=== PATIENT | female | born 1935 | race Caucasian/White ===

== ENCOUNTER 2022-07-14 11:09 | Emergency (ER) | payer MEDICARE, BC ==
[2022-07-14 11:56] LABS: ESTIMATED GFR 55 mL/min (>60)
[2022-07-14] MEDS ORDERED: Sodium Chloride 0.9% 1,000 ML IV ONE ×2 (12:04→14:45)
[2022-07-14] MEDS ORDERED: Piperacillin/Tazobactam 3.375 GM in Sodium Chloride 0.9% 50 ML IV SCH (12:15)
[2022-07-14] MEDS ORDERED: VANCOmycin 1 GM/200 ML 1 GM in Premix Bag 1 BAG IV SCH (12:30)
[2022-07-14] MEDS ORDERED: Acetaminophen 650 MG Supp RECTAL ONE (13:10)
[2022-07-14 14:58] LABS: CORONAVIRUS COVID-19 NAA NEGATIVE (NEGATIVE)
[2022-07-14] MEDS ORDERED: Saccharomyces Boulardii (Probiotic) 250 MG Cap PO SCH (21:00)
== END 2022-07-14 14:50 ==
LOC: FB.ED 11:09
DX: S42.343A Displaced spiral fracture of shaft of humerus, unspecified arm, initial encounter for closed fracture (principal); A41.9 Sepsis, unspecified organism; D72.825 Bandemia; J98.6 Disorders of diaphragm; X58.XXXA Exposure to other specified factors, initial encounter
CPT/HCPCS: 0241U; 36415; 71045; 80053; 81001; 83605; 83735; 85025; 86140; 87040; 87077; 96361; 96365; 96367; 99285; A9270; J2543; J3370; J7030; J3490

== ENCOUNTER 2022-12-07 17:42 | Emergency (ER) | payer MEDICARE, BC ==
[2022-12-07 18:39] LABS: APPEARANCE,URINE CLOUDY (CLEAR); BACTERIA,URINE MODERATE (NS); BILIRUBIN,URINE NEGATIVE (NEGATIVE); COLOR,URINE YELLOW (YELLOW); GLUCOSE,URINE NORMAL (NORMAL); KETONES,URINE NEGATIVE (NEGATIVE); LEUKOCYTE ESTERASE,URINE LARGE (NEGATIVE); NITRITE,URINE POSITIVE (NEGATIVE); OCCULT BLOOD,URINE MODERATE (NEGATIVE); PROTEIN,URINE 30 mg/dL (NEGATIVE); RBC,URINE >100 (0-5); RENAL EPITHELIAL CELLS,URINE RARE (NS); SQUAMOUS EPITHELIAL CELLS,UR OCCASIONAL (NS,R,O); UROBILINOGEN,URINE NORMAL (NEGATIVE); WBC,URINE >100 (0-5)
[2022-12-07] MEDS ORDERED: cefTRIAXone 1 GM Vial IM ONE (19:14)
== END 2022-12-07 19:58 | disposition home or self-care (01) ==
LOC: FB.ED 17:42
DX: N39.0 Urinary tract infection, site not specified (principal); I10 Essential (primary) hypertension; Z79.899 Other long term (current) drug therapy
CPT/HCPCS: 81001; 87086; 87088; 87186; 96372; 99283; J0696

== ENCOUNTER 2023-01-23 14:25 | Emergency (ER) | payer MEDICARE, BC ==
[2023-01-23] MEDS: Sodium Chloride 0.9% 10 ML Syringe FLUSH PRN (15:15)
[2023-01-23] MEDS: Sodium Chloride 0.9% 1,000 ML IV SCH (15:15)
[2023-01-23 15:33] LABS: BLOOD UREA NITROGEN,BUN 15 mg/dL (7-18); BUN/CREATININE RATIO 21.4 (9-20); CALCIUM 9.6 mg/dL (8.6-10.2); CARBON DIOXIDE,CO2 27 mmol/L (21-32); CHLORIDE,CL 93 mmol/L (100-110); CREATININE 0.7 mg/dL (0.55-1.02); EST CRCL DRUG DOSING (CG) 41.44 mL/min; ESTIMATED GFR 84 mL/min (>60); GLUCOSE RANDOM 146 mg/dL (80-116); POTASSIUM,K 3.8 mmol/L (3.5-5.3); SODIUM,NA 129 mmol/L (135-145)
[2023-01-23 15:34] LABS: BASOPHILS PERCENT AUTO 0.3 % (0.2-1.5); EOSINOPHILS PERCENT AUTO 0.5 % (0.6-8.1); HEMATOCRIT 26.7 % (34.2-48.2); HEMOGLOBIN 8.9 g/dL (11.4-15.5); LYMPHOCYTES ABSOLUTE AUTO 0.7 x10-3/uL (1.0-4.4); LYMPHOCYTES PERCENT AUTO 9.5 % (18.4-52.1); MEAN CORPUSCULAR HEMOGLOBIN 27.6 pg (23.9-33.9); MEAN CORPUSCULAR HGB CONC 33.5 g/dL (31.9-34.8); MEAN CORPUSCULAR VOLUME 82.3 fL (76.7-100.5); MEAN PLATELET VOLUME 5.7 fL (7.1-12.4); MONOCYTES ABSOLUTE AUTO 0.5 x10-3/uL (0.3-1.0); MONOCYTES PERCENT AUTO 6.8 % (4.4-15.7); NEUTROPHILS ABSOLUTE AUTO 6.3 x10-3/uL (1.5-6.3); NEUTROPHILS PERCENT AUTO 82.9 % (30.8-76.2); PLATELET COUNT,PLT 489 x10(3)uL (151-488); RED BLOOD CELL COUNT 3.24 x10(6)uL (3.60-5.20); RED CELL DISTRIBUTION WIDTH 16.1 % (12.3-16.5); WHITE BLOOD CELL COUNT,WBC 7.6 x10-3/uL (3.0-10.3)
[2023-01-23 15:39] LABS: A/G RATIO 0.6; ALANINE AMINOTRANSFERASE,ALT 20 U/L (12-36); ALKALINE PHOSPHATASE 135 IU/L (56-112); ASPARTATE AMNIOTRANSFERASE,AST 14 IU/L (5-25); BILIRUBIN TOTAL 0.3 mg/dL (0.1-1.3); PROTEIN TOTAL,TP 7.9 g/dL (6.0-8.0)
[2023-01-23 16:02] LABS: BILIRUBIN,URINE NEGATIVE (NEGATIVE); GLUCOSE,URINE NORMAL (NORMAL); KETONES,URINE 15 mg/dL (NEGATIVE); LEUKOCYTE ESTERASE,URINE NEGATIVE (NEGATIVE); NITRITE,URINE NEGATIVE (NEGATIVE); OCCULT BLOOD,URINE MODERATE (NEGATIVE); PH,URINE 6.5 (5.0-6.5); PROTEIN,URINE NEGATIVE (NEGATIVE); UROBILINOGEN,URINE NORMAL (NEGATIVE)
[2023-01-23 16:05] LABS: AMORPHOUS SEDIMENT,URINE FEW; APPEARANCE,URINE CLEAR (CLEAR); BACTERIA,URINE RARE (NS); COLOR,URINE YELLOW (YELLOW); RBC,URINE 0-5 (0-5); SQUAMOUS EPITHELIAL CELLS,UR OCCASIONAL (NS,R,O); WBC,URINE 0-5 (0-5)
[2023-01-23 16:07] LABS: PTT,PARTIAL THROMBOPLSTIN TIME 32.8 SECONDS (24.4-33.2)
[2023-01-23 16:11] LABS: PROTHROMBIN TIME 10.3 sec (9.0-11.1)
== END 2023-01-23 16:45 | disposition home or self-care (01) ==
LOC: FB.ED 14:25
DX: E86.0 Dehydration (principal); D64.9 Anemia, unspecified; E87.1 Hypo-osmolality and hyponatremia; I10 Essential (primary) hypertension; Z79.899 Other long term (current) drug therapy
CPT/HCPCS: 36415; 80053; 81001; 85025; 85610; 85730; 96360; 99284; J3490; J7030

== ENCOUNTER 2023-07-10 13:44 | Inpatient (IN) | payer MEDICARE, BC ==
[2023-07-10 15:23] LABS: HEMATOCRIT 28.8 % (34.2-48.2); HEMOGLOBIN 9.4 g/dL (11.4-15.5); MEAN CORPUSCULAR HEMOGLOBIN 30.8 pg (23.9-33.9); MEAN CORPUSCULAR HGB CONC 32.8 g/dL (31.9-34.8); MEAN CORPUSCULAR VOLUME 93.8 fL (76.7-100.5); MEAN PLATELET VOLUME 6.5 fL (7.1-12.4); PLATELET COUNT,PLT 414 x10(3)uL (151-488); RED BLOOD CELL COUNT 3.06 x10(6)uL (3.60-5.20); RED CELL DISTRIBUTION WIDTH 18.2 % (12.3-16.5); WHITE BLOOD CELL COUNT,WBC 12.5 x10-3/uL (3.0-10.3)
[2023-07-10 15:25] LABS: BLOOD UREA NITROGEN,BUN 25 mg/dL (7-18); BUN/CREATININE RATIO 35.7 (9-20); CALCIUM 9.3 mg/dL (8.6-10.2); CARBON DIOXIDE,CO2 23 mmol/L (21-32); CHLORIDE,CL 97 mmol/L (100-110); CREATININE 0.7 mg/dL (0.55-1.02); EST CRCL DRUG DOSING (CG) 38.42 mL/min; ESTIMATED GFR 84 mL/min (>60); GLUCOSE RANDOM 141 mg/dL (80-116); SODIUM,NA 133 mmol/L (135-145)
[2023-07-10 15:31] LABS: A/G RATIO 0.5; ALANINE AMINOTRANSFERASE,ALT 23 U/L (12-36); ALBUMIN 2.6 g/dL (3.2-4.6); ALKALINE PHOSPHATASE 98 IU/L (56-112); ASPARTATE AMNIOTRANSFERASE,AST 19 IU/L (5-25); BILIRUBIN TOTAL 0.7 mg/dL (0.1-1.3); PROTEIN TOTAL,TP 7.6 g/dL (6.0-8.0)
[2023-07-10] MEDS: Sodium Chloride 0.9% 1,000 ML IV ONE ×3 (16:17→20:55)
[2023-07-10 17:05] LABS: INFLUENZA A NAA NEGATIVE (NEGATIVE); INFLUENZA B NAA NEGATIVE (NEGATIVE); RESPIRATORY SYNCYTIAL VIR NAA NEGATIVE (NEGATIVE)
[2023-07-10 17:06] LABS: CORONAVIRUS COVID-19 NAA NEGATIVE (NEGATIVE)
[2023-07-10] MEDS: Acetaminophen 500 MG Tab PO ONE (17:24)
[2023-07-10 17:50] LABS: BILIRUBIN,URINE NEGATIVE (NEGATIVE); GLUCOSE,URINE NORMAL (NORMAL); KETONES,URINE NEGATIVE (NEGATIVE); LEUKOCYTE ESTERASE,URINE MODERATE (NEGATIVE); NITRITE,URINE NEGATIVE (NEGATIVE); OCCULT BLOOD,URINE MODERATE (NEGATIVE); PROTEIN,URINE TRACE mg/dL (NEGATIVE); UROBILINOGEN,URINE NORMAL (NEGATIVE)
[2023-07-10 17:51] LABS: APPEARANCE,URINE CLEAR (CLEAR); BACTERIA,URINE RARE (NS); COLOR,URINE YELLOW (YELLOW); MUCUS,URINE FEW (NS); RBC,URINE 0-5 (0-5); SQUAMOUS EPITHELIAL CELLS,UR OCCASIONAL (NS,R,O); WBC,URINE 0-5 (0-5)
[2023-07-10 18:16] LABS: BAND PERCENT MAN 9 % (0-6); LYMPHOCYTES PERCENT MAN 5 % (13-37); MONOCYTES PERCENT MAN 3 % (4-12); SEG NEUTROPHILS PERCENT MAN 83 % (46-82)
[2023-07-10] MEDS: Levofloxacin 500 MG Tab PO ONE (19:00)
[2023-07-10] MEDS ORDERED: Zolpidem 5 MG Tab PO PRN (20:08)
[2023-07-10] MEDS: Enoxaparin 40 MG/0.4 ML Syringe SUBCUT SCH (20:57)
[2023-07-10] MEDS: Dextrose 5%-0.45% NaCl 1,000 ML IV SCH (21:18)
[2023-07-11 07:02] LABS: BASOPHILS PERCENT AUTO 0.1 % (0.2-1.5); EOSINOPHILS ABSOLUTE AUTO 0.1 x10-3/uL (0.0-0.8); EOSINOPHILS PERCENT AUTO 1.1 % (0.6-8.1); HEMATOCRIT 23.1 % (34.2-48.2); HEMOGLOBIN 7.7 g/dL (11.4-15.5); LYMPHOCYTES ABSOLUTE AUTO 1.4 x10-3/uL (1.0-4.4); LYMPHOCYTES PERCENT AUTO 15.3 % (18.4-52.1); MEAN CORPUSCULAR HEMOGLOBIN 31.7 pg (23.9-33.9); MEAN CORPUSCULAR HGB CONC 33.3 g/dL (31.9-34.8); MEAN PLATELET VOLUME 6.4 fL (7.1-12.4); MONOCYTES ABSOLUTE AUTO 0.8 x10-3/uL (0.3-1.0); MONOCYTES PERCENT AUTO 9.2 % (4.4-15.7); NEUTROPHILS ABSOLUTE AUTO 6.8 x10-3/uL (1.5-6.3); NEUTROPHILS PERCENT AUTO 74.3 % (30.8-76.2); PLATELET COUNT,PLT 351 x10(3)uL (151-488); RED CELL DISTRIBUTION WIDTH 17.7 % (12.3-16.5); WHITE BLOOD CELL COUNT,WBC 9.2 x10-3/uL (3.0-10.3)
[2023-07-11 07:08] LABS: BLOOD UREA NITROGEN,BUN 19 mg/dL (7-18); CALCIUM 8.2 mg/dL (8.6-10.2); CARBON DIOXIDE,CO2 25 mmol/L (21-32); CHLORIDE,CL 100 mmol/L (100-110); CREATININE 0.4 mg/dL (0.55-1.02); EST CRCL DRUG DOSING (CG) 67.52 mL/min; ESTIMATED GFR 96 mL/min (>60); GLUCOSE RANDOM 103 mg/dL (80-116); POTASSIUM,K 3.4 mmol/L (3.5-5.3); SODIUM,NA 132 mmol/L (135-145)
[2023-07-11 07:13] LABS: BUN/CREATININE RATIO 47.5 (9-20)
[2023-07-11 07:39] LABS: RED BLOOD CELL COUNT 2.43 x10(6)uL (3.60-5.20)
[2023-07-11] MEDS: NS + KCl 20mEq/L 1,000 ML IV SCH (10:36)
[2023-07-11] MEDS ORDERED: NS + KCl 20mEq/L 1,000 ML IV SCH ×2 (11:30→16:15)
[2023-07-11] MEDS: Ampicillin/Sulbactam Na 3 GM in Sodium Chloride 0.9% 100 ML IV SCH (15:02)
[2023-07-11] MEDS: Iopamidol 755 Mg/ML 100 ML Bottle IV SCH (15:34)
[2023-07-11] MEDS: Acetaminophen 325 MG Tab PO PRN (16:59)
[2023-07-11] MEDS: Potassium Chloride 20 MEQ Tab.ER PO SCH (20:25)
[2023-07-12] MEDS: NS + KCl 20mEq/L 1,000 ML IV SCH (00:47)
[2023-07-12] MEDS: Pantoprazole 40 MG Tab.CR PO SCH (05:32)
[2023-07-12 06:40] LABS: BASOPHILS PERCENT AUTO 0.3 % (0.2-1.5); EOSINOPHILS ABSOLUTE AUTO 0.1 x10-3/uL (0.0-0.8); EOSINOPHILS PERCENT AUTO 0.9 % (0.6-8.1); HEMATOCRIT 22.1 % (34.2-48.2); HEMOGLOBIN 7.4 g/dL (11.4-15.5); LYMPHOCYTES ABSOLUTE AUTO 1.6 x10-3/uL (1.0-4.4); LYMPHOCYTES PERCENT AUTO 19.2 % (18.4-52.1); MEAN CORPUSCULAR HEMOGLOBIN 31.8 pg (23.9-33.9); MEAN CORPUSCULAR HGB CONC 33.4 g/dL (31.9-34.8); MEAN CORPUSCULAR VOLUME 95.1 fL (76.7-100.5); MEAN PLATELET VOLUME 6.2 fL (7.1-12.4); MONOCYTES ABSOLUTE AUTO 0.8 x10-3/uL (0.3-1.0); MONOCYTES PERCENT AUTO 10.1 % (4.4-15.7); NEUTROPHILS ABSOLUTE AUTO 5.7 x10-3/uL (1.5-6.3); NEUTROPHILS PERCENT AUTO 69.5 % (30.8-76.2); PLATELET COUNT,PLT 352 x10(3)uL (151-488); RED CELL DISTRIBUTION WIDTH 17.3 % (12.3-16.5); WHITE BLOOD CELL COUNT,WBC 8.1 x10-3/uL (3.0-10.3)
[2023-07-12 06:54] LABS: RED BLOOD CELL COUNT 2.32 x10(6)uL (3.60-5.20)
[2023-07-12 06:56] LABS: A/G RATIO 0.4; ALANINE AMINOTRANSFERASE,ALT 22 U/L (12-36); ALBUMIN 1.8 g/dL (3.2-4.6); ALKALINE PHOSPHATASE 78 IU/L (56-112); ASPARTATE AMNIOTRANSFERASE,AST 18 IU/L (5-25); BILIRUBIN TOTAL 0.5 mg/dL (0.1-1.3); BLOOD UREA NITROGEN,BUN 9 mg/dL (7-18); BUN/CREATININE RATIO 22.5 (9-20); CALCIUM 7.5 mg/dL (8.6-10.2); CARBON DIOXIDE,CO2 25 mmol/L (21-32); CHLORIDE,CL 103 mmol/L (100-110); CREATININE 0.4 mg/dL (0.55-1.02); EST CRCL DRUG DOSING (CG) 67.52 mL/min; ESTIMATED GFR 96 mL/min (>60); GLUCOSE RANDOM 84 mg/dL (80-116); POTASSIUM,K 3.4 mmol/L (3.5-5.3); SODIUM,NA 135 mmol/L (135-145)
[2023-07-12] MEDS: Aspirin 81 MG Tab.Chew PO SCH (09:16)
[2023-07-12] MEDS: Ferrous Sulfate 325 MG Tab PO SCH (09:16)
[2023-07-12] MEDS: Dextrose 5%-0.9% NaCl with KCl 1,000 ML IV SCH (09:48)
[2023-07-13 06:55] LABS: BASOPHILS PERCENT AUTO 0.3 % (0.2-1.5); EOSINOPHILS ABSOLUTE AUTO 0.2 x10-3/uL (0.0-0.8); EOSINOPHILS PERCENT AUTO 2.7 % (0.6-8.1); HEMOGLOBIN 7.3 g/dL (11.4-15.5); LYMPHOCYTES ABSOLUTE AUTO 1.4 x10-3/uL (1.0-4.4); LYMPHOCYTES PERCENT AUTO 23.4 % (18.4-52.1); MEAN CORPUSCULAR HGB CONC 33.5 g/dL (31.9-34.8); MEAN CORPUSCULAR VOLUME 95.5 fL (76.7-100.5); MEAN PLATELET VOLUME 6.1 fL (7.1-12.4); MONOCYTES ABSOLUTE AUTO 0.6 x10-3/uL (0.3-1.0); MONOCYTES PERCENT AUTO 10.6 % (4.4-15.7); NEUTROPHILS ABSOLUTE AUTO 3.6 x10-3/uL (1.5-6.3); PLATELET COUNT,PLT 349 x10(3)uL (151-488); RED BLOOD CELL COUNT 2.28 x10(6)uL (3.60-5.20); RED CELL DISTRIBUTION WIDTH 17.2 % (12.3-16.5); WHITE BLOOD CELL COUNT,WBC 5.8 x10-3/uL (3.0-10.3)
[2023-07-13 07:00] LABS: HEMATOCRIT 21.7 % (34.2-48.2)
[2023-07-13 07:10] LABS: A/G RATIO 0.4; ALANINE AMINOTRANSFERASE,ALT 14 U/L (12-36); ALKALINE PHOSPHATASE 71 IU/L (56-112); ASPARTATE AMNIOTRANSFERASE,AST 14 IU/L (5-25); BILIRUBIN TOTAL 0.3 mg/dL (0.1-1.3); BLOOD UREA NITROGEN,BUN 5 mg/dL (7-18); BUN/CREATININE RATIO 16.7 (9-20); CALCIUM 7.6 mg/dL (8.6-10.2); CARBON DIOXIDE,CO2 25 mmol/L (21-32); CHLORIDE,CL 102 mmol/L (100-110); CREATININE 0.3 mg/dL (0.55-1.02); EST CRCL DRUG DOSING (CG) 90.03 mL/min; ESTIMATED GFR 103 mL/min (>60); GLUCOSE RANDOM 118 mg/dL (80-116); POTASSIUM,K 3.4 mmol/L (3.5-5.3); PROTEIN TOTAL,TP 5.7 g/dL (6.0-8.0); SODIUM,NA 133 mmol/L (135-145)
[2023-07-13 07:13] LABS: ALBUMIN 1.7 g/dL (3.2-4.6)
[2023-07-13] MEDS: Sodium Chloride 0.9% 10 ML Syringe FLUSH PRN (20:50)
[2023-07-14 06:54] LABS: BASOPHILS PERCENT AUTO 0.6 % (0.2-1.5); EOSINOPHILS ABSOLUTE AUTO 0.2 x10-3/uL (0.0-0.8); EOSINOPHILS PERCENT AUTO 2.9 % (0.6-8.1); HEMATOCRIT 25.1 % (34.2-48.2); HEMOGLOBIN 8.4 g/dL (11.4-15.5); LYMPHOCYTES ABSOLUTE AUTO 1.6 x10-3/uL (1.0-4.4); LYMPHOCYTES PERCENT AUTO 24.4 % (18.4-52.1); MEAN CORPUSCULAR HEMOGLOBIN 31.4 pg (23.9-33.9); MEAN CORPUSCULAR HGB CONC 33.3 g/dL (31.9-34.8); MEAN CORPUSCULAR VOLUME 94.2 fL (76.7-100.5); MEAN PLATELET VOLUME 6.2 fL (7.1-12.4); MONOCYTES ABSOLUTE AUTO 0.7 x10-3/uL (0.3-1.0); MONOCYTES PERCENT AUTO 9.8 % (4.4-15.7); NEUTROPHILS ABSOLUTE AUTO 4.2 x10-3/uL (1.5-6.3); NEUTROPHILS PERCENT AUTO 62.3 % (30.8-76.2); PLATELET COUNT,PLT 406 x10(3)uL (151-488); RED CELL DISTRIBUTION WIDTH 17.1 % (12.3-16.5); WHITE BLOOD CELL COUNT,WBC 6.7 x10-3/uL (3.0-10.3)
[2023-07-14 07:02] LABS: POTASSIUM,K 3.4 mmol/L (3.5-5.3); SODIUM,NA 135 mmol/L (135-145)
[2023-07-14 07:03] LABS: A/G RATIO 0.4; ALANINE AMINOTRANSFERASE,ALT 13 U/L (12-36); ALBUMIN 1.9 g/dL (3.2-4.6); ALKALINE PHOSPHATASE 81 IU/L (56-112); ASPARTATE AMNIOTRANSFERASE,AST 14 IU/L (5-25); BILIRUBIN TOTAL 0.3 mg/dL (0.1-1.3); BLOOD UREA NITROGEN,BUN 5 mg/dL (7-18); BUN/CREATININE RATIO 12.5 (9-20); CALCIUM 8.3 mg/dL (8.6-10.2); CARBON DIOXIDE,CO2 26 mmol/L (21-32); CHLORIDE,CL 100 mmol/L (100-110); CREATININE 0.4 mg/dL (0.55-1.02); EST CRCL DRUG DOSING (CG) 67.52 mL/min; ESTIMATED GFR 96 mL/min (>60); GLUCOSE RANDOM 106 mg/dL (80-116); PROTEIN TOTAL,TP 6.4 g/dL (6.0-8.0)
[2023-07-14 07:15] LABS: RED BLOOD CELL COUNT 2.66 x10(6)uL (3.60-5.20)
[2023-07-14] MEDS: Potassium Chloride 20 MEQ Tab.ER PO ONE (08:59)
== END 2023-07-14 11:45 | disposition home or self-care (01) | DRG 375 ==
LOC: FB.ED 13:44 → FB.MS 19:20 → OBSVTOIN 07-11 11:23
PROVIDERS: ADMIT Family Medicine; ATTEND Family Medicine
DX: A41.9 Sepsis, unspecified organism (principal); D72.829 Elevated white blood cell count, unspecified; C18.9 Malignant neoplasm of colon, unspecified; R79.82 Elevated C-reactive protein (CRP); D84.9 Immunodeficiency, unspecified; R50.9 Fever, unspecified; E87.20 Acidosis, unspecified; E87.1 Hypo-osmolality and hyponatremia; Z92.25 Personal history of immunosuppression therapy; R65.10 Systemic inflammatory response syndrome (SIRS) of non-infectious origin without acute organ dysfunction; I10 Essential (primary) hypertension; Z66 Do not resuscitate; E78.00 Pure hypercholesterolemia, unspecified; M19.90 Unspecified osteoarthritis, unspecified site; F41.9 Anxiety disorder, unspecified; F32.A Depression, unspecified; E88.09 Other disorders of plasma-protein metabolism, not elsewhere classified; E87.6 Hypokalemia; D64.89 Other specified anemias; D63.0 Anemia in neoplastic disease; I95.9 Hypotension, unspecified; Z85.89 Personal history of malignant neoplasm of other organs and systems; Z87.440 Personal history of urinary (tract) infections; Z79.899 Other long term (current) drug therapy; Z87.19 Personal history of other diseases of the digestive system; Z87.81 Personal history of (healed) traumatic fracture; Z90.89 Acquired absence of other organs; Z98.49 Cataract extraction status, unspecified eye; I25.2 Old myocardial infarction; Z98.890 Other specified postprocedural states; Z86.39 Personal history of other endocrine, nutritional and metabolic disease
CPT/HCPCS: 0241U; 36415; 71046; 71275; 74177; 80048; 80053; 81001; 82272; 83605; 83735; 85025; 85379; 86140; 87040; 93005; 93010; 96360; 96361; 96372; 99223; 99232; 99238; 99285; 99285-25; A9270-GY; C1758; G0378; J0295; J1650; J3480; J3490; J7030; J7042; Q9967

== ENCOUNTER 2023-09-03 10:53 | Emergency (ER) | payer MEDICARE, BC ==
[2023-09-03 11:19] LABS: BILIRUBIN,URINE NEGATIVE (NEGATIVE); GLUCOSE,URINE NORMAL (NORMAL); KETONES,URINE 15 mg/dL (NEGATIVE); LEUKOCYTE ESTERASE,URINE NEGATIVE (NEGATIVE); NITRITE,URINE NEGATIVE (NEGATIVE); OCCULT BLOOD,URINE NEGATIVE (NEGATIVE); PH,URINE 6.5 (5.0-6.5); PROTEIN,URINE NEGATIVE (NEGATIVE); UROBILINOGEN,URINE NORMAL (NEGATIVE)
[2023-09-03 11:25] LABS: APPEARANCE,URINE CLEAR (CLEAR); BACTERIA,URINE FEW (NS); COLOR,URINE YELLOW (YELLOW); RBC,URINE 0-5 (0-5); SQUAMOUS EPITHELIAL CELLS,UR FEW (NS,R,O); WBC,URINE 0-5 (0-5)
== END 2023-09-03 12:35 | disposition home or self-care (01) ==
LOC: FB.ED 10:53
DX: S70.01XA Contusion of right hip, initial encounter (principal); M54.50 Low back pain, unspecified; G89.29 Other chronic pain; E78.00 Pure hypercholesterolemia, unspecified; I10 Essential (primary) hypertension; Z79.899 Other long term (current) drug therapy; Z79.82 Long term (current) use of aspirin; Z86.19 Personal history of other infectious and parasitic diseases; W19.XXXA Unspecified fall, initial encounter
CPT/HCPCS: 72100; 73502-RT; 81001; 99283